=== PATIENT | female | born 1985 | race Caucasian/White ===

== ENCOUNTER 2019-05-15 21:02 | Emergency (ER) | payer OTHER ==
[2019-05-15 21:19] VITALS: BP 146/96; PULSE 96; RESP 18; TEMP 98
[2019-05-15] MEDS ORDERED: LORazepam 1 MG TAB PO STA (21:52)
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
[2019-05-15] MEDS ORDERED: DIPH,PERTUS(ACELL)TETVAC-LF 0.5 ML VIAL IM ONE (23:12)
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
[2019-05-15] MEDS ORDERED: LIDOCAINE 1% INJ 10MG/ML (20 ML MDV) SQ STA (23:37)
[2019-05-15] MEDS ORDERED: CEPHALEXIN 500MG STARTER PACK 4 CAP BTL PO STA (23:59)
[2019-05-16] MEDS ORDERED: LORazepam 1 MG TAB PO STA
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
== END 2019-05-16 00:06 | disposition home or self-care (01) ==
LOC: EC 21:02
DX: S01.111A Laceration without foreign body of right eyelid and periocular area, initial encounter (principal); Y04.0XXA Assault by unarmed brawl or fight, initial encounter; Y92.009 Unspecified place in unspecified non-institutional (private) residence as the place of occurrence of the external cause; Z53.20 Procedure and treatment not carried out because of patient's decision for unspecified reasons
CPT/HCPCS: 72125; 70450; 70480; 99284; 12013; J2001

== ENCOUNTER 2020-03-26 09:14 | Emergency (ER) | payer OTHER ==
[2020-03-26 09:18] VITALS: BP 107/73; PULSE 101; RESP 18; TEMP 98.7
[2020-03-26] MEDS ORDERED: LIDOCAINE 1% INJ 10MG/ML (20 ML MDV) SQ ONE (09:27)
[2020-03-26] MEDS ORDERED: SULFAMETH-TMP DS STARTER PACK 2 TAB BTL PO STA (09:28)
[2020-03-26] MEDS ORDERED: IBUPROFEN 600 MG STARTER PACK 4 TAB BTL PO STA (09:28)
[2020-03-26] MEDS ORDERED: ACET/COD 300 MG/30 MG STARTER PACK 6 TAB BTL PO STA (09:28)
--- NOTE | 2020-03-26 09:34 | ED ---
Skin/Abscess/FB HPI - General Chief complaint: Skin/Abscess/Foreign Body Stated complaint: infection on groin Time Seen by Provider: 03/26/20 09:18 Source: patient, RN notes reviewed, old records reviewed Mode of arrival: ambulatory Limitations: no limitations - History of Present Illness Initial comments: 34 rolled female presents to the ER today for evaluation for right vulvar infection. Patient reports that she shaved week she has an ingrown hair causing pain and swelling. Patient reports that she believes she's had this from an ingrown hair. Patient denies any fevers or chills. She states that she's had dysuria or hematuria. - Related Data Previous Rx's Medication Instructions Recorded Cephalexin [Keflex] 500 mg PO Q6HR 3 Days #12 cap 05/16/19 Sulfamethox-Tmp 800-160Mg [Bactrim 2 tab PO Q12HR #40 tab 03/26/20 DS 800-160 mg] Allergies Allergy/AdvReac Type Severity Reaction Status Date / Time No Known Allergies Allergy Verified 05/15/19 21:18 Review of Systems ROS Statement: Those systems with pertinent positive or pertinent negative responses have been documented in the HPI. ROS Other: All systems not noted in ROS Statement are negative. Past Medical History Past Medical History: No Reported History History of Any Multi-Drug Resistant Organisms: None Reported Past Surgical History: No Surgical Hx Reported Past Psychological History: No Psychological Hx Reported Smoking Status: Former smoker Past Alcohol Use History: None Reported Past Drug Use History: None Reported General Exam - General Exam Comments Initial Comments: 34-year-old female. Alert and oriented. No distress. Limitations: no limitations General appearance: alert, in no apparent distress Head exam: Present: atraumatic, normocephalic, normal inspection Eye exam: Present: normal appearance, PERRL, EOMI. Absent: scleral icterus, conjunctival injection, periorbital swelling ENT exam: Present: normal exam, mucous membranes moist Neck exam: Present: normal inspection. Absent: tenderness, meningismus, lymphadenopathy Respiratory exam: Present: normal lung sounds bilaterally. Absent: respiratory distress, wheezes, rales, rhonchi, stridor Cardiovascular Exam: Present: regular rate, normal rhythm, normal heart sounds. Absent: systolic murmur, diastolic murmur, rubs, gallop, clicks GI/Abdominal exam: Present: soft, normal bowel sounds. Absent: distended, tenderness, guarding, rebound, rigid External exam: Absent: normal external exam (Patient has erythema over the right labia. Evidence of ingrown hair with central boil.) Extremities exam: Present: normal inspection, full ROM, normal capillary refill. Absent: tenderness, pedal edema, joint swelling, calf tenderness Back exam: Present: normal inspection, full ROM Neurological exam: Present: alert, oriented X3, CN II-XII intact Psychiatric exam: Present: normal affect, normal mood Skin exam: Present: warm, dry, intact, normal color. 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 She was started from ingrown hair from shaving. Patient's abscesses or any draining when he first went into the room. Patient did have Tylenol procedure completed and incision and drainage open up the area further to allow can any draining. I did advise Patient to do warm compresses. We'll put the Patient on antibiotic. Advised close follow-up with primary care physician for recheck. Disposition Clinical Impression: Abscess of right genital labia Disposition: HOME SELF-CARE Condition: Good Instructions (If sedation given, give patient instructions): Abscess Incision and Drainage (DC) Additional Instructions: Patient apply warm compresses over the area. Patient can follow-up with PCP. Take her antibiotic. Return to emergency department if any alarming signs or symptoms occur. Prescriptions: Sulfamethox-Tmp 800-160Mg [Bactrim DS 800-160 mg] 2 tab PO Q12HR #40 tab Is patient prescribed a controlled substance at d/c from ED?: No Referrals: None,Stated [Primary Care Provider] - 1-2 days Time of Disposition: 09:32
== END 2020-03-26 09:53 | disposition home or self-care (01) ==
LOC: EC 09:14
DX: N76.4 Abscess of vulva (principal); Z87.891 Personal history of nicotine dependence
CPT/HCPCS: 87070; 87205; 99283; 56405; J2001

== ENCOUNTER 2020-05-09 12:57 | Emergency (ER) | payer OTHER ==
[2020-05-09 13:03] VITALS: BP 117/73; PULSE 95; RESP 18; TEMP 97.8
[2020-05-09] MEDS ORDERED: LIDOCAINE 1% INJ 10MG/ML (20 ML MDV) SQ ONE (13:14)
[2020-05-09] MEDS ORDERED: CLINDAMYCIN 150 MG CAP PO STA (13:57)
--- NOTE | 2020-05-09 13:57 | ED ---
General Adult HPI - General Source: patient, RN notes reviewed Mode of arrival: ambulatory Limitations: no limitations <Yunior Rodriguez - Last Filed: 05/09/20 13:58> <Jazmin Osullivan - Last Filed: 05/10/20 08:14> - General Chief complaint: Skin/Abscess/Foreign Body Stated complaint: Infection Time Seen by Provider: 05/09/20 13:06 - History of Present Illness Initial comments: 34-year-old female presents to the emergency room for a chief complaint of labial abscess. Patient reports that she had an abscess a few weeks ago. Patient states that it drained a significant amount of drainage when it was drained here in the emergency room. Patient took antibiotic stated did improve. Patient reports it tested positive for MRSA. Patient states that she started to have some more swelling about 2 days ago. She went to urgent care and they started her on Keflex, did not attempt drainage. Patient reports it seems to be worsening on the Keflex. She denies fevers or chills. Has not followed up with primary.Patient has no other complaints at this time including shortness of breath, chest pain, abdominal pain, nausea or vomiting, headache, or visual changes. (Yunior Rodriguez) - Related Data Previous Rx's Medication Instructions Recorded Cephalexin [Keflex] 500 mg PO Q6HR 3 Days #12 cap 05/16/19 Sulfamethox-Tmp 800-160Mg [Bactrim 2 tab PO Q12HR #40 tab 03/26/20 DS 800-160 mg] Clindamycin [Cleocin] 450 mg PO Q8H 7 Days #63 cap 05/09/20 Allergies Allergy/AdvReac Type Severity Reaction Status Date / Time No Known Allergies Allergy Verified 05/09/20 12:59 Review of Systems ROS Other: All systems not noted in ROS Statement are negative. <Yunior Rodriguez - Last Filed: 05/09/20 13:58> ROS Other: All systems not noted in ROS Statement are negative. <Jazmin Osullivan - Last Filed: 05/10/20 08:14> ROS Statement: Those systems with pertinent positive or pertinent negative responses have been documented in the HPI. Past Medical History Past Medical History: No Reported History History of Any Multi-Drug Resistant Organisms: MRSA Date of last positivie culture/infection: 03/26/20 MDRO Source:: [facility] Past Surgical History: No Surgical Hx Reported Past Psychological History: No Psychological Hx Reported Smoking Status: Former smoker Past Alcohol Use History: None Reported Past Drug Use History: None Reported <Yunior Rodriguez - Last Filed: 05/09/20 13:58> General Exam Limitations: no limitations General appearance: alert, in no apparent distress Head exam: Present: atraumatic, normocephalic, normal inspection Eye exam: Present: normal appearance, PERRL, EOMI. Absent: scleral icterus, conjunctival injection, periorbital swelling ENT exam: Present: normal exam, mucous membranes moist Neck exam: Present: normal inspection, full ROM. Absent: tenderness, meningismus, lymphadenopathy Respiratory exam: Present: normal lung sounds bilaterally. Absent: respiratory distress, wheezes, rales, rhonchi, stridor Cardiovascular Exam: Present: regular rate, normal rhythm, normal heart sounds. Absent: systolic murmur, diastolic murmur, rubs, gallop, clicks GI/Abdominal exam: Present: soft, normal bowel sounds. Absent: distended, tenderness, guarding, rebound, rigid External exam: Present: swelling (patient has induration about 2 cm x 3 cm noted to the right labia. No evidence for a Bartholin's gland cyst.). Absent: erythema, lesions, lacerations, ecchymosis <Yunior Rodriguez P - Last Filed: 05/09/20 13:58> Course Vital Signs 05/09/20 12:59 Temperature 97.8 F Pulse Rate 95 Respiratory 18 Rate Blood Pressure 117/73 O2 Sat by Pulse 99 Oximetry Procedures - Incision & Drainage Consent Obtained: verbal consent Site: vulva/vagina Size (cm): 2 Anesthetic Used: lidocaine 1% Amount (mLs): 3 I&D Cleaning Method: Betadine Sterile Field Used?: Yes Scalpel Used: #11 I&D Drainage Obtained: Blood Patient Tolerated Procedure: well, no complications <Yunior Rodriguez P - Last Filed: 05/09/20 13:58> Medical Decision Making <Yunior Rodriguez - Last Filed: 05/09/20 13:58> <Jazmin Osullivan - Last Filed: 05/10/20 08:14> - Medical Decision Making I did attempt to incise and drain abscess of right labia which felt very indurated. Purulent material was not expelled. At this time I recommended patient do warm compresses and sits baths. She will be put on clindamycin instead of Keflex for MRSA coverage. I recommended she follow up with [facility]. Patient will monitor for any worsening symptoms. If it is worsening on this antibiotic or she is getting fevers she will return to the emergency room. Patient is agreeable to this. (Yunior Rodriguez) I was available for consultation in the emergency department. The history and physical exam were done by the midlevel provider. I was consulted for this patients care. I reviewed the case with the midlevel provider and based on their presentation of the patient, I agree with the assessment, medical decision making and plan of care as documented. Chart was dictated using [employer]ise dictation software. Attempts were made to correct any dictation errors however some typographical errors may persist. Patient was seen during state of emergency due to Covid-19. (Jazmin Osullivan) Disposition Is patient prescribed a controlled substance at d/c from ED?: No Time of Disposition: 13:56 <Yunior Rodriguez - Last Filed: 05/09/20 13:58> <Jazmin Osullivan - Last Filed: 05/10/20 08:14> Clinical Impression: Labial abscess Disposition: HOME SELF-CARE Condition: Good Instructions (If sedation given, give patient instructions): Abscess Incision and Drainage (ED) Additional Instructions: Please apply warm compresses and warm baths. Discontinue Keflex and take clindamycin as directed. Please follow-up with [facility]. If symptoms are worsening or you are developing fevers you need to return to the emergency room. Prescriptions: Clindamycin [Cleocin] 450 mg PO Q8H 7 Days #63 cap Referrals: Amanda Hoyt DO [Doctor of Osteopathic Medicine] - 1-2 days
== END 2020-05-09 14:10 | disposition home or self-care (01) ==
LOC: EC 12:57
DX: N76.4 Abscess of vulva (principal); Z87.891 Personal history of nicotine dependence; Z86.14 Personal history of Methicillin resistant Staphylococcus aureus infection
CPT/HCPCS: 10060; 99282; J2001

== ENCOUNTER 2020-09-24 19:08 | Inpatient (IN) | payer MEDICAID, OTHER ==
[2020-09-24] MEDS ORDERED: LORazepam 2 MG/ML INJ IV STA (19:34)
[2020-09-24 19:59] LABS: Basophils # (A) 0.1 k/uL (0-0.2); Basophils % (A) 0 %; Eosinophils # (A) 0.2 k/uL (0-0.7); Eosinophils % (A) 1 %; HGB 13.9 gm/dL (11.4-16.0); Lymphocytes # (A) 2.2 k/uL (1.0-4.8); Lymphocytes % (A) 17 %; MCH 30.6 pg (25.0-35.0); MCHC 33.9 g/dL (31.0-37.0); MCV 90.4 fL (80.0-100.0); Mean Platelet Volume 7.2; Monocytes # (A) 0.4 k/uL (0-1.0); Monocytes % (A) 3 %; Neutrophils % (A) 77 %; Platelet Count 354 k/uL (150-450); RBC 4.54 m/uL (3.80-5.40); RDW 12.8 % (11.5-15.5)
[2020-09-24 20:10] LABS: ALT 16 U/L (4-34); AST 31 U/L (14-36); African American GFR (CKD) >90 (>60 ml/min/1.73 sqM); Albumin 4.6 g/dL (3.5-5.0); Alkaline Phosphatase 76 U/L (38-126); Anion Gap 13 mmol/L; Blood Urea Nitrogen 6 mg/dL (7-17); Calcium 9.3 mg/dL (8.4-10.2); Carbon Dioxide 20 mmol/L (22-30); Chloride 105 mmol/L (98-107); Glucose 63 mg/dL (74-99); Non-African American GFR(CKD) >90 (>60 ml/min/1.73 sqM); Sodium 138 mmol/L (137-145); Total Bilirubin 0.4 mg/dL (0.2-1.3)
--- NOTE | 2020-09-24 21:13 | ED ---
Psych HPI - General Source: patient Mode of arrival: ambulatory <Deb Jaimes - Last Filed: 09/24/20 21:55> <Roberto Kapoor - Last Filed: 09/24/20 22:16> - General Chief Complaint: Psychiatric Symptoms Stated Complaint: EPS eval Time Seen by Provider: 09/24/20 19:15 - History of Present Illness Initial Comments: 35-year-old female presenting to the ER today for chief complaint of suicidal ideation with attempt. Patient states that she relapsed and has been jerking again she states she is beating herself up for it. Patient states she didn't know what else to do she was feeling very down and out and thus herself in her car started at and sat in a garage that was closed in attempt at "ending it all". Patient states that a neighbor came over just as she was falling asleep. She denies taking medications and attempted overdose. Patient states that she is just very upset patient is tearful hyperventilating during history taking she denies any chest pain shortness of breath nausea vomiting . Patient denies any fevers cough or additional complaints. (Deb Jaimes) - Related Data Previous Rx's Medication Instructions Recorded Cephalexin [Keflex] 500 mg PO Q6HR 3 Days #12 cap 05/16/19 Sulfamethox-Tmp 800-160Mg [Bactrim 2 tab PO Q12HR #40 tab 03/26/20 DS 800-160 mg] Clindamycin [Cleocin] 450 mg PO Q8H 7 Days #63 cap 05/09/20 Allergies Allergy/AdvReac Type Severity Reaction Status Date / Time No Known Allergies Allergy Verified 09/24/20 19:14 Review of Systems ROS Other: All systems not noted in ROS Statement are negative. <Deb Jaimes - Last Filed: 09/24/20 21:55> ROS Other: All systems not noted in ROS Statement are negative. <Roberto Kapoor - Last Filed: 09/24/20 22:16> ROS Statement: Those systems with pertinent positive or pertinent negative responses have been documented in the HPI. Past Medical History Past Medical History: No Reported History History of Any Multi-Drug Resistant Organisms: MRSA Date of last positivie culture/infection: 03/26/20 MDRO Source:: [facility] Past Surgical History: No Surgical Hx Reported Past Psychological History: Anxiety, Bipolar, Depression Smoking Status: Former smoker Past Alcohol Use History: Occasional Past Drug Use History: Cocaine <Deb Jaimes - Last Filed: 09/24/20 21:55> General Exam Limitations: no limitations <Deb Jaimes - Last Filed: 09/24/20 21:55> - General Exam Comments Initial Comments: General: The patient is awake and alert, in no distress Eye: +3 mm pupils are equal, round and reactive to light, extra-ocular movements are intact. No nystagmus. There is normal conjunctiva bilaterally. No signs of icterus. Ears, nose, mouth and throat: There are moist mucous membranes and no oral lesions. Neck: The neck is supple, there is no tenderness or JVD. Cardiovascular: There is a regular rate and rhythm. No murmur, rub or gallop is appreciated. Respiratory: Lungs are clear to auscultation, hyperventilating. No wheezes, stridor, rales, or rhonchi. Gastrointestinal: Soft, non-distended, non-tender abdomen without masses or organomegaly noted. There is no rebound or guarding present. Musculoskeletal: Normal ROM, no tenderness. Strength 5/5. Sensation intact. Radial and DP pulses equal bilaterally 2+. Neurological: A&O x 3. CN II-XII intact grossly, There are no obvious motor or sensory deficits. Coordination appears grossly intact. Speech is normal. Skin: Skin is warm and dry and no rashes or lesions are noted. Psychiatric: Cooperative, very tearful (Deb Jaimes) Course Vital Signs 09/24/20 19:10 Temperature 98.2 F Pulse Rate 116 H Respiratory 24 Rate Blood Pressure 125/66 O2 Sat by Pulse 100 Oximetry Medical Decision Making - Lab Data Result diagrams: 09/24/20 19:46 09/24/20 19:46 <Deb Jaimes Quoc - Last Filed: 09/24/20 21:55> - Lab Data Result diagrams: 09/24/20 19:46 09/24/20 19:46 <Roberto Kapoor - Last Filed: 09/24/20 22:16> - Medical Decision Making 35 year female presenting to the ER today for suicide attempt. Patient pet itioned by myself as im concern she is a risk to herself. Carbon monoxide levels within acceptable limits. Patient is not hypoxic she calmed down after anxiolytic therapy. patient resting comfortably. Medically cleared. EPS evaluated patient, recommended admission. (Deb Jaimes) I saw this patient in conjunction with the physician acute care assistant. I performed independent history and physical exam. Agree with case management. I completed the medical certificate (Roberto Kapoor) - Lab Data Lab Results 09/24/20 09/24/20 09/24/20 Range/Units 19:46 19:46 19:46 WBC 13.0 H (3.8-10.6) k/uL RBC 4.54 (3.80-5.40) m/uL Hgb 13.9 (11.4-16.0) gm/dL Hct 41.0 (34.0-46.0) % MCV 90.4 (80.0-100.0) fL MCH 30.6 (25.0-35.0) pg MCHC 33.9 (31.0-37.0) g/dL RDW 12.8 (11.5-15.5) % Plt Count 354 (150-450) k/uL MPV 7.2 Neutrophils % 77 % Lymphocytes % 17 % Monocytes % 3 % Eosinophils % 1 % Basophils % 0 % Neutrophils # 10.0 H (1.3-7.7) k/uL Lymphocytes # 2.2 (1.0-4.8) k/uL Monocytes # 0.4 (0-1.0) k/uL Eosinophils # 0.2 (0-0.7) k/uL Basophils # 0.1 (0-0.2) k/uL Carbon Monoxide, Quant 1.6 (<10.0) % Sodium 138 (137-145) mmol/L Potassium 4.0 (3.5-5.1) mmol/L Chloride 105 (98-107) mmol/L Carbon Dioxide 20 L (22-30) mmol/L Anion Gap 13 mmol/L BUN 6 L (7-17) mg/dL Creatinine 0.83 (0.52-1.04) mg/dL Est GFR (CKD-EPI)AfAm >90 (>60 ml/min/1.73 sqM) Est GFR (CKD-EPI)NonAf >90 (>60 ml/min/1.73 sqM) Glucose 63 L (74-99) mg/dL Calcium 9.3 (8.4-10.2) mg/dL Total Bilirubin 0.4 (0.2-1.3) mg/dL AST 31 (14-36) U/L ALT 16 (4-34) U/L Alkaline Phosphatase 76 (38-126) U/L Total Protein 8.0 (6.3-8.2) g/dL Albumin 4.6 (3.5-5.0) g/dL Disposition Is patient prescribed a controlled substance at d/c from ED?: No Time of Disposition: 21:56 - Out of Hospital Transfer - Req. Specs Out of Hospital Transfer - Requested Specifics: Psychiatric Non-ICU <Deb Jaimes - Last Filed: 09/24/20 21:55> <Roberto Kapoor - Last Filed: 09/24/20 22:16> Clinical Impression: Suicide attempt, Depression Disposition: TRANSFER TO PSYCH HOSP/UNIT Condition: Stable Referrals: None,Stated [Primary Care Provider] - 1-2 days
[2020-09-24] MEDS ORDERED: SODIUM CHLORIDE 0.9% 1,000 ML IV ONE (22:02)
[2020-09-24] MEDS ORDERED: SODIUM CHLORIDE 0.9% 1,000 ML IV SCH (22:15)
[2020-09-24] MEDS ORDERED: ACETAMINOPHEN TAB 325 MG TAB PO PRN (23:55)
[2020-09-24] MEDS ORDERED: MAGNESIUM HYDROXIDE 2,400 MG/10 ML CUP PO PRN (23:55)
[2020-09-24] MEDS ORDERED: MAG HYDROX/AL HYDROX/SIMETH 30 ML CUP PO PRN (23:55)
[2020-09-25] MEDS: LORazepam 1 MG TAB PO PRN ×2 (01:20→11:08)
[2020-09-25 01:30] LABS: Amphetamine Screen,Urine Not Detected (NotDetected); Barbiturate Screen,Urine Not Detected (NotDetected); Benzodiazepines Screen,Urine Detected (NotDetected); Cocaine Screen,Urine Detected (NotDetected); Methadone Screen, Urine Not Detected (NotDetected); Opiate Screen,Urine Not Detected (NotDetected); Oxycodone Screen, Urine Not Detected (NotDetected); Phencyclidine Screen,Urine Not Detected (NotDetected); Tricyclic Antidepressant,Urine Not Detected (NotDetected); Urn Cannabinoid Scrn Detected (NotDetected)
[2020-09-25 01:32] LABS: Appearance,Urine Clear (Clear); Bacteria,Urine Rare /hpf; Bilirubin,Urine Negative (Negative); Blood,Urine Large (Negative); Color,Urine Light Yellow; Glucose,Urine (UA) Negative (Negative); Ketones,Urine Negative (Negative); Leukocyte Esterase,Urine Negative (Negative); Mucus,Urine Rare /hpf; Nitrite,Urine Negative (Negative); Protein,Urine Negative (Negative); RBC,Urine 31 /hpf (0-5); Specific Gravity,Urine 1.006 (1.001-1.035); Squamous Epithelial Cell,Urine <1 /hpf (0-4); Urobilinogen,Urine <2.0 mg/dL (<2.0); WBC,Urine 4 /hpf (0-5)
[2020-09-25 08:16] LABS: Basophils # (A) 0.1 k/uL (0-0.2); Basophils % (A) 1 %; Eosinophils # (A) 0.2 k/uL (0-0.7); Eosinophils % (A) 2 %; HCT 39.3 % (34.0-46.0); HGB 13.3 gm/dL (11.4-16.0); Lymphocytes # (A) 2.9 k/uL (1.0-4.8); Lymphocytes % (A) 36 %; MCH 31.7 pg (25.0-35.0); MCV 93.2 fL (80.0-100.0); Mean Platelet Volume 7.4; Monocytes # (A) 0.6 k/uL (0-1.0); Monocytes % (A) 7 %; Neutrophils # (A) 4.2 k/uL (1.3-7.7); Neutrophils % (A) 52 %; Platelet Count 273 k/uL (150-450); RBC 4.21 m/uL (3.80-5.40); RDW 13.1 % (11.5-15.5)
[2020-09-25 08:39] LABS: ALT 13 U/L (4-34); AST 25 U/L (14-36); African American GFR (CKD) >90 (>60 ml/min/1.73 sqM); Albumin 3.4 g/dL (3.5-5.0); Alkaline Phosphatase 64 U/L (38-126); Anion Gap 4 mmol/L; Blood Urea Nitrogen 8 mg/dL (7-17); Calcium 8.5 mg/dL (8.4-10.2); Carbon Dioxide 26 mmol/L (22-30); Chloride 108 mmol/L (98-107); Cholesterol 169 mg/dL (<200); Glucose 87 mg/dL (74-99); HDL Cholesterol 75 mg/dL (40-60); LDL Cholesterol,Calculated 78 mg/dL (0-99); Non-African American GFR(CKD) 88 (>60 ml/min/1.73 sqM); Potassium 4.3 mmol/L (3.5-5.1); Sodium 138 mmol/L (137-145); Total Bilirubin 0.4 mg/dL (0.2-1.3); Total Protein 6.3 g/dL (6.3-8.2); Triglycerides 78 mg/dL (<150)
[2020-09-25] MEDS ORDERED: NICOTINE 14MG/24HR PATCH TRANSDERM SCH (09:00)
[2020-09-25] MEDS ORDERED: ARIPiprazole 5 MG TAB PO STA (10:33)
[2020-09-25] MEDS ORDERED: VENLAFAXINE HCL ER 75 MG CAP PO STA (10:33)
[2020-09-25] MEDS ORDERED: NALTREXONE HCL 50 MG TAB PO STA (10:35)
[2020-09-25] MEDS ORDERED: cloNIDine HCL 0.1 MG TAB PO PRN (11:31)
[2020-09-25] MEDS ORDERED: IBUPROFEN 600 MG TAB PO PRN (11:34)
[2020-09-25] MEDS ORDERED: LOPERAMIDE 2 MG CAP PO PRN (11:34)
[2020-09-25] MEDS ORDERED: ONDANSETRON 4 MG TAB PO PRN (11:34)
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
[2020-09-25 15:51] LABS: Hemoglobin A1C 5.4 % (4.0-6.0)
[2020-09-26 07:20] VITALS: BP 110/59; PULSE 100; RESP 14; TEMP 97.8
[2020-09-26] MEDS: LORazepam 1 MG TAB PO PRN (08:04)
[2020-09-26] MEDS ORDERED: VENLAFAXINE HCL ER 75 MG CAP PO SCH (09:00)
[2020-09-26] MEDS ORDERED: ARIPiprazole 5 MG TAB PO SCH (09:00)
[2020-09-26] MEDS ORDERED: NALTREXONE HCL 50 MG TAB PO SCH (09:00)
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
== END 2020-09-26 12:02 | disposition home or self-care (01) | DRG 880 ==
LOC: EC 19:08 → 3MHU 23:51
PROVIDERS: ADMIT Psychiatry & Neurology Psychiatry; ATTEND Psychiatry & Neurology Psychiatry
DX: R45.851 Suicidal ideations (principal); F11.23 Opioid dependence with withdrawal; Z20.822 Contact with and (suspected) exposure to COVID-19; F10.10 Alcohol abuse, uncomplicated; F14.10 Cocaine abuse, uncomplicated; F31.9 Bipolar disorder, unspecified; F43.10 Post-traumatic stress disorder, unspecified; F50.9 Eating disorder, unspecified; Z79.899 Other long term (current) drug therapy; Z86.59 Personal history of other mental and behavioral disorders; Z87.891 Personal history of nicotine dependence; Z91.410 Personal history of adult physical and sexual abuse
CPT/HCPCS: 36415; 80053; 80061; 80306; 81001; 81025; 82075; 82375; 83036; 84443; 85025; 87635; 96374; 99285

== ENCOUNTER 2020-11-29 11:26 | Emergency (ER) | payer OTHER ==
[2020-11-29 11:31] VITALS: RESP 18; TEMP 98.9
[2020-11-29] MEDS ORDERED: DIPH,PERTUS(ACELL)TETVAC-LF 0.5 ML VIAL IM ONE (11:46)
[2020-11-29] MEDS ORDERED: RABIES IMMUNE GLOB 300 UNIT/ML 1 ML VIAL IM ONE ×2 (11:46→12:15)
[2020-11-29] MEDS ORDERED: AMOXIC-POT CLAV 875MG STARTER PACK 2 TAB BTL PO STA (11:48)
[2020-11-29] MEDS ORDERED: RABIES IMMUNE GLOB 300 UNIT/ML 5 ML VIAL IM ONE (12:00)
[2020-11-29] MEDS ORDERED: RABIES VACCINE (PCEC) 2.5 UNIT KIT IM ONE (12:00)
--- NOTE | 2020-11-29 12:19 | ED ---
General Adult HPI - General Chief complaint: Animal Bite Stated complaint: racoon bite Time Seen by Provider: 11/29/20 11:33 Source: patient, RN notes reviewed Mode of arrival: ambulatory Limitations: no limitations - History of Present Illness Initial comments: 35-year-old female presents to the emergency room for a chief complaint bite. Patient reports there were 2 baby raccoons in her house and she was trying to get them out. She put them outside the window. That's when the mother raccoons came and bit her hand. Patient states the mother carina contracted entered the home 3 times after this through the window. Patient presents today for rabies shots as well as tetanus immunization. Patient did clean the wound. Patient has no other complaints at this time including shortness of breath, chest pain, abdominal pain, nausea or vomiting, headache, or visual changes. - Related Data Home Medications Medication Instructions Recorded Confirmed Venlafaxine HCl [Venlafaxine HCl 225 mg PO DAILY 11/29/20 11/29/20 ER] buPROPion XL [Wellbutrin Xl] 300 mg PO DAILY 11/29/20 11/29/20 Previous Rx's Medication Instructions Recorded Amoxicillin/Potassium Clav 1 tab PO Q12HR #20 tab 11/29/20 [Augmentin 875-125 Tablet] Allergies Allergy/AdvReac Type Severity Reaction Status Date / Time No Known Allergies Allergy Verified 11/29/20 12:01 Review of Systems ROS Statement: Those systems with pertinent positive or pertinent negative responses have been documented in the HPI. ROS Other: All systems not noted in ROS Statement are negative. Past Medical History Past Medical History: No Reported History History of Any Multi-Drug Resistant Organisms: MRSA Date of last positivie culture/infection: 03/26/20 MDRO Source:: [facility] Past Surgical History: No Surgical Hx Reported Past Psychological History: Anxiety, Bipolar, Depression Smoking Status: Never smoker Past Alcohol Use History: None Reported Past Drug Use History: None Reported, Cocaine General Exam Limitations: no limitations General appearance: alert, in no apparent distress Head exam: Present: atraumatic, normocephalic, normal inspection Eye exam: Present: normal appearance ENT exam: Present: normal exam, mucous membranes moist Neck exam: Present: normal inspection, full ROM. Absent: tenderness Respiratory exam: Present: normal lung sounds bilaterally. Absent: respiratory distress, wheezes Cardiovascular Exam: Present: regular rate, normal rhythm, normal heart sounds Extremities exam: Present: other (Small laceration noted to the dorsum of the left hand near the fifth metacarpal. No significant edema or erythema. No evidence of infection at this time. No evidence of foreign bodies. Wound does not require suturing.) Course Vital Signs 11/29/20 11:28 Temperature 98.9 F Pulse Rate 84 Respiratory 18 Rate Blood Pressure 118/81 O2 Sat by Pulse 98 Oximetry Medical Decision Making - Medical Decision Making I did recommend x-ray to rule out any foreign bodies such as teeth however the patient declined. Patient has a very small wound noted to the back of the hand. This was cleaned thoroughly with water and soap. Patient was given tetanus immunization and started on Augmentin for raccoon bite. She was given rabies series. Immunoglobulin was injected into the wound by myself and the rest was injected into the muscles by RN. She was given a prescription for repeat rabies immunizations on days 3, 7, and 14. She will monitor for signs of infection and return to the emergency room for any worsening symptoms. Disposition Clinical Impression: Raccoon bite Disposition: HOME SELF-CARE Condition: Good Instructions (If sedation given, give patient instructions): Animal Bite (ED) Additional Instructions: Please take antibiotic as directed. Keep wound clean. Monitor for swelling or redness to return if these occur. Return to the hospital for additional rabies vaccine injections on the following dates: 12/02, 12/06, 12/13 Prescriptions: Amoxicillin/Potassium Clav [Augmentin 875-125 Tablet] 1 tab PO Q12HR #20 tab Is patient prescribed a controlled substance at d/c from ED?: No Referrals: Carl Durham [STAFF PHYSICIAN] - 1-2 days Time of Disposition: 13:05
[2020-11-29 13:40] VITALS: BP 128/70; PULSE 82
== END 2020-11-29 13:39 | disposition home or self-care (01) ==
LOC: EC 11:26
DX: S61.452A Open bite of left hand, initial encounter (principal); F41.9 Anxiety disorder, unspecified; F32.9 Major depressive disorder, single episode, unspecified; W55.51XA Bitten by raccoon, initial encounter; Z23 Encounter for immunization
CPT/HCPCS: 90375; 90471; 90675; 90715; 96372; 99283